=== PATIENT | male | born 1955 | race African-American/Black ===

== ENCOUNTER 2019-04-11 23:06 | Inpatient (IN) ==
[2019-04-11] MEDS ORDERED: ASPIRIN PO ONE (23:18)
--- NOTE | 2019-04-11 23:28 | PROVIDER DOCUMENTATION ---
HPI-Respiratory General - General Chief Complaint: Shortness of Breath Stated Complaint: BREATHING TROUBLE Time Seen by Provider: 04/11/19 23:17 Source: patient Allergies/Adverse Reactions: Patient Allergies Allergy/AdvReac Type Severity Reaction Status Date / Time No Known Allergies Allergy Verified 02/09/15 20:32 Home Medications: Home Medication List Medication Instructions Recorded Confirmed Last Taken Type RAMIpril [Altace] 10 mg PO DAILY 02/09/15 04/11/19 02/09/15 History Aspirin 325 mg PO DAILY 04/11/19 04/11/19 Unknown History Furosemide [Lasix] 20 mg PO DIRECTED 04/11/19 04/11/19 Unknown History Hydrocodone/Acetaminophen 1 ea PO BID PRN PRN 04/11/19 04/11/19 Unknown History [Hydrocodone-Acetamin 10-300 mg] Potassium Chloride 8 meq PO DIRECTED 04/11/19 04/11/19 Unknown History Pravastatin Sodium 1 tab PO DAILY 04/11/19 04/11/19 Unknown History - History of Present Illness-Resp Nature of Presenting Problem: 63 YOM WITH PMH OF HTN, COPD, CHF PRESENTS WITH C/O SOB. REPORTS IT HAS BEEN PRESENT FOR A FEW MONTHS BUT HAS GOTTEN WORSE OVER THE LAST FEW DAYS AND WOKE HIM UP TONIGHT. HE REPORTS HE IS SUPPOSED TO BE ON HOME O2 BUT DOES NOT HAVE ANY. HE DOES CONTINUE TO SMOKE. HE DENIES CP, N/V/D, SWELLING IN EXTREMITIES. + COUGH WITH YELLOW SPUTUM X 2 DAYS Quality of Pain: reports: none Severity in ED: reports: moderate Onset/Duration: reports: other (3-4 MONTHSE HAS GOTTEN WORSE, WOKE HIM UP TONIGHT) Timing: reports: improving Exposure: reports: unknown cause Cough Quality/Degree: reports: moderate, sputum Modifying Factors: worse with: lying down Associated Symptoms: reports: cough, short of breath Similar Symptoms Previously?: Yes Recently seen or treated by another doctor?: Yes (MISSED MOST RECENT APPT) Review of Systems - Adult - REVIEW OF SYSTEMS - ADULT Constitutional: reports: no symptoms reported. denies: see HPI, chills, fever, fatique, night sweats, weight gain, weight loss, other Eyes: reports: no symptoms reported. denies: see HPI, discharge, dry eyes, decreased vision, blurred vision, double vision, eye pain, redness, other Ears, Nose, Mouth & Throat: reports: no symptoms reported. denies: see HPI, ear discharge, ear pain, hearing loss, tinnitus, epistaxis, sinus problem, nose pain, loose teeth, mouth/dental pain, mouth swelling, hoarseness, throat pain, throat swelling, other Cardiovascular: reports: no symptoms reported. denies: see HPI, chest pain, edema, heart murmur, irregular heart rate, orthopnea, palpitations, poor circulation, PND, syncope, other Respiratory: reports: see HPI, shortness of breath. denies: no symptoms reported, chronic cough, cough, dyspnea on exertion, excessive sputum production, hemoptysis, pleurisy, wheezing, other Gastrointestinal: reports: no symptoms reported. denies: see HPI, abdominal pain, hematemesis, constipation, diarrhea, difficulty swallowing, frequent heartburn, nausea, poor appetite, rectal bleeding, vomiting, other Genitourinary: reports: no symptoms reported. denies: see HPI, dysuria, discharge, frequency, flank pain, frequent UTI's, hematuria, hesitency, incontinence, urinary retention, urgency, other Musculoskeletal: reports: no symptoms reported. denies: see HPI, bone pain, cheli k pain, frequent leg cramps, joint pain, joint swelling, muscle aches, muscle weakness, neck pain, other Integumentary: reports: no symptoms reported. denies: see HPI, hives, hair loss, itching, mole changes, nail changes, rash, skin sores/ulcer, skin thickening, other Neurological: reports: no symptoms reported. denies: see HPI, ataxia, dizzines s/vertigo, headache/migraines, loss of balance, numbness, paresthesia, seizure, slurred speech, syncope, tremors, other Psychiatric: reports: no symptoms reported. denies: see HPI, anxiety, anti- depressant use, alcohol/drug dependence, depression, emotional problems, insomn ia, panic attacks, suicidal thoughts, other Endocrine: reports: no symptoms reported. denies: see HPI, change in skin pigment, excessive sweating, goiter, cold intolerance, heat intolerance, increased hunger, increased thirst, polyuria, other Hematologic/Lymphatic: reports: no symptoms reported. denies: see HPI, blood clots, easy bruising, low blood count, lymphedema, prolonged bleeding, swollen lymph nodes, transfusions, other Allergic/Immunologic: reports: no symptoms reported. denies: see HPI, allergic reactions, allergic rhinitis, asthma, eczema, food allergy, frequent infections, hay fever, hives, positive PPD, urticaria, other Past History - Adult - PAST MEDICAL HISTORY-ADULT Review of Records: reports: Nursing Assessment Review, Social history reviewed & non-contributory. Major Childhood Illnesses: reports: denies history Cardiovascular: reports: CHF, HTN Respiratory: reports: COPD (HOME 02) Gastrointestinal: reports: denies history Genitourinary: reports: denies history Neurological: reports: denies history - PRIOR SURGERIES/PROCEDURES Surgical/Procedure History: reports: reviewed, not pertinent, other (large laceration repair to right upper arm) - PRIOR HOSPITALIZATIONS Prior Hospitalizations: reports: for other non-related - IMMUNIZATION STATUS Childhood Immunizations: See Nurse Assessment Flu Vaccine: See Nurse Assessment - FAMILY HISTORY Family History: reviewed, not pertinent Physical Exam-General - PHYSICAL EXAM-ADULT Initial Vital Signs Reviewed: Yes - CONSTITUTIONAL General Appearance: appears well, alert, no apparent distress - EYES Eyes: PERRL/EOMI, pink conjunctivae - HEAD, EARS, NOSE, MOUTH & THROAT HENMT: normocephalic/atraumatic, moist mucous membranes, normal ENT inspection - NECK Neck: non-tender, full range of motion, supple - RESPIRATORY Respiratory: chest non-tender, lungs clear, normal breath sounds, no pleuratic chest pain, no respiratory distress, no accessory muscle use - CARDIOVASCULAR Cardiovascular: normal peripheral pulses, regular rate, rhythm, no edema, no gallop, no JVD - LYMPHATIC Lymphatic: no adenopathy - MUSCULOSKELETAL Back Exam: normal inspection Extremity: normal range of motion, non-tender, normal gait Peripheral Pulses: radial (R): 2+, radial (L): 2+ - SKIN Integumentary: normal color, normal turgor, warm/dry - NEUROLOGIC Neurologic: grossly normal - PSYCHIATRIC Psych/Mental Status: normal mood/affect, oriented x 3 Progress - PLAN OF CARE/RESULTS Progress/Plan/Lab Results: Vital Signs - 8 hr 04/11/19 23:11 Temperature 98.2 F Pulse Rate 90 Respiratory Rate 18 Blood Pressure 183/078 O2 Sat by Pulse Oximetry 90 L Laboratory Results - last 24 hr 04/11/19 04/11/19 04/11/19 23:30 23:30 23:30 WBC 9.00 RBC 6.31 H Hgb 16.8 Hct 52.3 H MCV 82.9 MCH 26.6 L MCHC 32.1 L RDW Std Deviation 15.9 H Plt Count 214 MPV 10.4 Immature Gran % (Auto) 0.2 Neut % (Auto) 63.5 Lymph % (Auto) 24.1 [place] % (Auto) 9.3 Eos % (Auto) 2.6 Baso % (Auto) 0.3 Immature Gran # (Auto) 0.02 Neut # (Auto) 5.71 Lymph # (Auto) 2.17 [place] # (Auto) 0.84 H Eos # (Auto) 0.23 Baso # (Auto) 0.03 Sodium 137 Potassium 4.6 Chloride 100 Carbon Dioxide 23 L Anion Gap 13 BUN 11 Creatinine 0.8 Estimated GFR/1.73 m2 > 60 BUN/Creatinine Ratio 14 Glucose 131 H Calculated Osmolality 275 Calcium 8.7 L Total Bilirubin 0.20 AST 27 ALT 21 Alkaline Phosphatase 101 Creatine Kinase 210 H Creatine Kinase Index 1.1 CK-MB (CK-2) 2.33 Troponin T < 0.010 [id number] Pept Total Protein 7.5 Albumin 4.1 Globulin 3.0 Albumin/Globulin Ratio 1.0 04/11/19 23:30 WBC RBC Hgb Hct MCV MCH MCHC RDW Std Deviation Plt Count MPV Immature Gran % (Auto) Neut % (Auto) Lymph % (Auto) [place] % (Auto) Eos % (Auto) Baso % (Auto) Immature Gran # (Auto) Neut # (Auto) Lymph # (Auto) [place] # (Auto) Eos # (Auto) Baso # (Auto) Sodium Potassium Chloride Carbon Dioxide Anion Gap BUN Creatinine Estimated GFR/1.73 m2 BUN/Creatinine Ratio Glucose Calculated Osmolality Calcium Total Bilirubin AST ALT Alkaline Phosphatase Creatine Kinase Creatine Kinase Index CK-MB (CK-2) Troponin T [id number] Pept 24 Total Protein Albumin Globulin Albumin/Globulin Ratio Orders Category Date Time Status Cardiac Monitoring DIRECTED Care 04/11/19 23:18 Active Saline Loc NOW Care 04/11/19 23:18 Active cxr [CHEST-2 VIEWS] [RAD] Stat Exams 04/11/19 23:17 Taken ABG [RESP] Routine Lab 04/11/19 23:41 Ordered BLOOD CULTURE [BLDCUL] Stat Lab 04/12/19 00:38 Ordered BNP [PRO B-NATRIURETIC PEPTIDE] Stat Lab 04/11/19 23:30 Completed CBC WITH ELECTRONIC DIFF [HEME] Stat Lab 04/11/19 23:30 Completed CK PROFILE [SP CHEM] Stat Lab 04/11/19 23:30 Completed COMPREHENSIVE METABOLIC PANEL [CHEM] Stat Lab 04/11/19 23:30 Completed TROPONIN T Stat Lab 04/11/19 23:30 Completed Aspirin Med 04/11/19 23:18 Discontinued 325 mg PO NOW ONE CefTRIAXONE [Rocephin] 1 gm Med 04/12/19 00:34 Active 0.9% Sodium Chloride Inj [Ns] 50 ml IV NOW Clonidine [Catapres] Med 04/12/19 00:17 Discontinued 0.1 mg PO NOW ONE Methylprednisolone Sod Succ [Solu-Medrol] Med 04/12/19 00:36 Discontinued 125 mg IV NOW ONE Oxygen Device Stat Oth 04/11/19 23:18 Active EKG [EKG] Stat Ther 04/11/19 23:17 Ordered Pt signed out to me by JAY Javed, Dr. Paez has been paged multiple times over the last 3 hours with no response, protocol states to call other hospitalist, spoke with Dr. Bonds who is aware of the patient, will admit to Dr. Paez for PNA and Dr. Bonds to notify Jeannine about the patient Result Diagrams: 04/11/19 23:30 04/11/19 23:30 - EKG 1 Time of EKG reading by physician:: 23:28 EKG Read and Signed by:: Marco Chawla EKG Interpretation (*Must complete 3 of following elements*): Abnormal Rate: 93 Rhythm: SR [place]: right QRS: normal [place] Interval: normal ST Wave: normal Prior EKG Comparison: no prior EKG - XRAY 1 XRAY Study: Chest Impression: Abnormal (FOCAL CONSOLIDATION C/W PNA-DR CHAWLA) - CONSULTS/PCP/HOSPITALIST Notification #1 *Consult/PCP/Hospitalist*: DR BROWN Consult Disposition: Admit - CHANGE OF SHIFT REPORT (ED Provider) 1 Report Given and Care Transferred to:: DR CHAWLA Time of Transfer: 01:00 Items Pending: Physician Consult/Arrival Departure - Departure Date of Disposition Decision: 04/12/19 Time of Disposition Decision: 00:48 DIAGNOSIS: Hypoxia Pneumonia Qualifiers: Pneumonia type: due to unspecified organism Laterality: unspecified laterality Lung location: unspecified part of lung Qualified Code(s): J18.9 - Pneumonia, unspecified organism HTN (hypertension) Qualifiers: Hypertension type: essential hypertension Qualified Code(s): I10 - Essential (primary) hypertension Disposition: ADMITTED INPATIENT 09 Certified Medical Emergency: Emergent Condition: Fair Referrals and Follow-Ups: Michael Werner MD [Primary Care Provider] - - Critical Care Note This patient required my direct & personal management of CC.: No Attestation - Physician/ TAO Attestation Patient care was provided by Advanced Practice Provider:: Yes Advanced Practice Provider:: Lisa Javed Advanced Practice Provider documentation review:: The Mid-level provider documentation, treatment plan and medical decision making was reviewed by the physician who agrees with all treatment and medical decision making by the MLP. The physician spent face to face time with patient:: No Advanced Practice Provider documentation review:: Supervising physician onsite and consulted in the evaluation and care of this patient. The physician did not have a face to face encounter with the patient.
[2019-04-11 23:46] LABS: BASO# 0.03 X1000 (0.0-0.2); BASO% 0.3 % (0.0-0.8); EOS# 0.23 X1000 (0.0-0.7); EOS% 2.6 % (0.0-10.0); HEMATOCRIT 52.3 % (42.0-52.0); HEMOGLOBIN 16.8 g/dL (14.0-18.0); IMM GRAN# 0.02 X1000 (0.0-0.04); IMM GRAN% 0.2 % (0.0-0.5); LYMPH# 2.17 X1000 (1.2-3.4); LYMPH% 24.1 % (20.5-51.1); MCH 26.6 PG (27-31); MCHC 32.1 g/dL (33-37); MCV 82.9 FL (81-99); MONO# 0.84 X1000 (0.11-0.59); MONO% 9.3 % (1.7-9.3); MPV 10.4 FL (7.4-10.4); NEUT# 5.71 X1000 (1.4-6.5); NEUT% 63.5 % (42.2-75.2); PLT 214 X1000 (130-400); RBC 6.31 XMIL (4.7-6.1); RDW 15.9 % (11.5-14.5)
[2019-04-12 00:05] LABS: AGAP 13; ALBUMIN 4.1 g/dL (3.5-5.0); ALKALINE PHOSPHATASE 101 U/L (32-122); BUN 11 mg/dL (8-22); CALCIUM 8.7 mg/dL (8.8-10.2); CHLORIDE 100 mmol/L (98-107); CK PROFILE 210 U/L (24-204); COSMO 275; CREATININE 0.8 mg/dL (0.7-1.2); ESTIMATED GFR > 60; GLUCOSE 131 mg/dL (70-104); GOT 27 U/L (10-34); GPT 21 U/L (10-44); POTASSIUM 4.6 mmol/L (3.5-5.1); SODIUM 137 mmol/L (136-145); TCO2 23 mmol/L (25-35); TOTAL PROTEIN 7.5 g/dL (6.3-8.3)
[2019-04-12 00:06] LABS: BLOOD TYPE ARTERIAL; SAMPLE BLOOD
[2019-04-12] MEDS ORDERED: CATAPRES PO ONE (00:17)
[2019-04-12 00:27] LABS: CK INDEX 1.1 (0.0-2.5); CK-MB 2.33 ng/mL (0.0-5.0)
[2019-04-12] MEDS ORDERED: ROCEPHIN 1 GM in NS 50 ML IV ONE (00:34)
[2019-04-12] MEDS ORDERED: SOLU-MEDROL IV ONE (00:36)
[2019-04-12 02:12] LABS: BE 1.8 mmoll (-3.0-3.0); HCO3-(ACT) 25.9 mmoll (20.0-26.0); METHB 1.3 % (0.0-1.5); PCO2(98.6) 41 mmHg (35-45); PO2(98.6) 72 mmHg (60-100); SAO2 97.3 % (95.0-100.0); pH(98.6) 7.42 (7.35-7.45)
[2019-04-12] MEDS ORDERED: TORADOL IV PRN (04:06)
[2019-04-12] MEDS ORDERED: ZOFRAN IV PRN (04:06)
[2019-04-12] MEDS ORDERED: MORPHINE IV PRN (04:06)
[2019-04-12] MEDS ORDERED: TYLENOL PO PRN (04:06)
--- NOTE | 2019-04-12 04:54 | EKG Report ---
Test Performed on : 04/11/2019 11:28:27 PM Test Reason : SOB Blood Pressure : / mmHG Vent. Rate : 093 BPM Atrial Rate : 093 BPM P-R Int : 192 ms QRS Dur : 086 ms QT Int : 386 ms P-R-T Axes : 059 097 070 degrees QTc Int : 479 ms Normal sinus rhythm. with sinus arrhythmia. Rightward axis Borderline ECG No previous ECGs available Unconfirmed Result
--- NOTE | 2019-04-12 07:23 | Diag Imaging Result Doc PS360 ---
EXAM: CHEST-2 VIEWS HISTORY: SOB TECHNIQUE: Three views COMPARISON: 04/17/2017 FINDINGS: The lungs are well expanded. The heart is not enlarged. There are increased interstitial markings in the mid and lower lungs. No pleural effusions. No consolidation. IMPRESSION: Small infiltrates/pulmonary edema in the mid lower lungs Electronically signed by Emiliano Vences 04/12/2019 7:20 AM
[2019-04-12 08:42] LABS: BASO# 0.01 X1000 (0.0-0.2); BASO% 0.1 % (0.0-0.8); HEMATOCRIT 54.8 % (42.0-52.0); HEMOGLOBIN 17.7 g/dL (14.0-18.0); IMM GRAN# 0.02 X1000 (0.0-0.04); IMM GRAN% 0.3 % (0.0-0.5); LYMPH# 0.92 X1000 (1.2-3.4); LYMPH% 12.6 % (20.5-51.1); MCH 26.7 PG (27-31); MCHC 32.3 g/dL (33-37); MCV 82.7 FL (81-99); MONO# 0.02 X1000 (0.11-0.59); MONO% 0.3 % (1.7-9.3); MPV 10.5 FL (7.4-10.4); NEUT# 6.33 X1000 (1.4-6.5); NEUT% 86.7 % (42.2-75.2); PLT 221 X1000 (130-400); RBC 6.63 XMIL (4.7-6.1); RDW 15.6 % (11.5-14.5)
[2019-04-12 08:57] LABS: INR 1.01; PROTIME 13.8 Seconds (11.0-16.0); PTT 29.2 Seconds (22.3-41.8)
[2019-04-12 09:01] LABS: LYMPHS 11 % (21-51); MONO 3 % (1-9); SEGS 85 % (42-75)
[2019-04-12 09:03] LABS: AGAP 14; ALBUMIN 4.6 g/dL (3.5-5.0); ALKALINE PHOSPHATASE 100 U/L (32-122); BUN 10 mg/dL (8-22); CALCIUM 9.2 mg/dL (8.8-10.2); CHLORIDE 101 mmol/L (98-107); CK PROFILE 168 U/L (24-204); COSMO 281; CREATININE 0.8 mg/dL (0.7-1.2); ESTIMATED GFR > 60; GLUCOSE 177 mg/dL (70-104); GOT 16 U/L (10-34); GPT 21 U/L (10-44); POTASSIUM 4.4 mmol/L (3.5-5.1); SODIUM 139 mmol/L (136-145); TCO2 25 mmol/L (25-35); TOTAL PROTEIN 7.4 g/dL (6.3-8.3)
[2019-04-12 09:33] LABS: URINE SOURCE CLEAN CATCH
[2019-04-12] MEDS ORDERED: LABETALOL IV PRN (09:34)
[2019-04-12 09:35] LABS: BILIRUBIN URINE NEGATIVE (NEGATIVE); BLOOD URINE SMALL (NEGATIVE); COLOR YELLOW; GLUCOSE URINE NEGATIVE (NEGATIVE); KETONE URINE NEGATIVE (NEGATIVE); LEUKOCYTES URINE NEGATIVE (NEGATIVE); NITRITE URINE NEGATIVE (NEGATIVE); PH URINE 6.5; PROTEIN URINE TRACE mg/dL (NEGATIVE); SP GRAVITY URINE 1.016; TURBIDITY URINE CLEAR (CLEAR); UROBILINOGEN URINE NORMAL (NORMAL)
[2019-04-12 09:36] LABS: UR EPITHELIAL CELLS <10 /HPF (<10); URINE BACTERIA NEGATIVE /HPF; URINE RBC <10 /HPF (<10); URINE WBC <10 /HPF (<10)
[2019-04-12] MEDS ORDERED: LASIX PO SCH (09:45)
[2019-04-12] MEDS ORDERED: POTASSIUM CHLORIDE 8 MEQ PO SCH (09:45)
[2019-04-12] MEDS: ALTACE PO SCH (09:46)
[2019-04-12] MEDS: ZITHROMAX 500 MG/NS 500 MG/250 ML IVPB IV SCH (11:15)
[2019-04-12] MEDS: DUONEB (A & A) INH SCH ×4 (11:25→22:33)
[2019-04-12] MEDS ORDERED: PNEUMOVAX 23 IM ONE (12:45)
[2019-04-12] MEDS: LASIX IV SCH ×2 (12:52→22:10)
[2019-04-12] MEDS: NORCO-10 PO PRN ×2 (13:12→18:47)
--- NOTE | 2019-04-12 18:43 | HISTORY AND PHYSICAL ---
PRIMARY CARE PHYSICIAN: Dr. Werner. CHIEF COMPLAINT: Shortness of breath has progressively worsened over the last few days with a productive cough with yellow sputum. HISTORY OF PRESENT ILLNESS: This is a 63-year-old male who presents to [facility] ER with complaints of shortness of breath and a productive cough of yellow sputum that has been worse over the last couple of days stated actually woke him up from sleep so he came to the emergency room. States that he does have oxygen at home and also a CPAP. He does smoke a half a pack of cigarettes a day and has done so for the past 20+ years. Workup showed a O2 saturation on room air of 90% did drop as low as 88% and was changed from a nasal cannula to a nonrebreather. Chest x-ray showed small infiltrates and pulmonary edema in the mid lower lungs so he is being admitted for further evaluation and treatment. PAST MEDICAL HISTORY: Of hypertension, COPD with home O2 and CHF. PAST SURGICAL HISTORY: Of a cyst removed. FAMILY HISTORY: Reviewed and noncontributory. SOCIAL HISTORY: He currently lives with family smokes a half a pack of cigarettes a day and has done so for 20+ years, denies any alcohol or illicit drug use. ALLERGIES: Eggs. HOME MEDICATIONS: Aspirin 325 mg p.o. daily, Lasix 20 mg p.o. as directed, [place] 10 one p.o. b.i.d. p.r.n., potassium 8 mEq p.o. as directed, pravastatin 40 mg p.o. daily and ramipril 10 mg p.o. daily. LABORATORY DATA: Showed a white blood cell count of 9, hemoglobin 16.8, hematocrit 52.3, platelets 214,000, PT and INR of 13.8 and 1.01. ABG with a pH of 7.42, pCO2 of 41, PO2 72, bicarb 25.9, oxyhemoglobin 87, carboxyhemoglobin 9 and this was on 3.5 L per nasal cannula. Sodium 137, potassium 4.6, chloride 100, CO2 23, BUN of 11, creatinine 1.8, glucose 131. Cardiac enzymes were negative 2 sets, plasma lactate of 1.2. Urinalysis was negative. Chest x-ray showed small infiltrates in the mid and lower lungs and pulmonary edema. EKG showed normal sinus rhythm with sinus arrhythmia at 93. REVIEW OF SYSTEMS: He denied any fever, chills, blurred vision, dizziness, chest pain, coughing. He was short of breath and had a yellow productive cough. Denied any abdominal pain, constipation, diarrhea, burning or hurting with urination. PHYSICAL EXAMINATION: On arrival he had a temperature of 98.2 degrees, pulse 90, respirations 18, blood pressure 183/78, was initially saturating 90% on room air placed on O2 via nasal cannula at 4 L but dropped on that down to 88% so was placed on a nonrebreather is now currently on a Venturi mask at 94%. HEENT: Normocephalic, atraumatic. Normal ENT inspection. Oropharynx and nares are clear. Pupils are equal, round, and reactive to light, accommodation. Extraocular movements are intact. NECK: Normal inspection, normal range of motion. LUNGS: With some decreased breath sounds in the bases, bilaterally equal lung expansion. Chest wall movement noted. O2 via Venturi mask in place at this time. HEART: Regular rate and rhythm. No murmurs, rubs, or gallops. ABDOMEN: Soft, nontender, nondistended. Bowel sounds are present x4 quadrants. MUSCULOSKELETAL: He has 5/5 strength x4 extremities. NEUROLOGICAL: The cranial nerves 2-12 appear grossly intact. ASSESSMENT: 1. Bilateral pneumonia/pulmonary edema. 2. Acute respiratory failure. 3. Hypertension. 4. Congestive heart failure history of with a possible mild exacerbation. 5. Tobacco abuse. OUR PLAN: He was admitted to the medical unit placed on healthy heart diet. We are going to check an echocardiogram, place him on Lasix 40 mg IV q.12, Rocephin 1 gram IV q.24, azithromycin 500 IV q.24, DuoNeb q.4 hours. Recheck a CBC, BMP in the a.m., continue O2 per protocol and further orders after seen by attending. Dictated by MIGUEL Mackay for Gopi Little MD cc: MIGUEL Mackay MD Dr. Thomas
[2019-04-12] MEDS: ASPIRIN PO SCH (18:47)
--- NOTE | 2019-04-12 20:35 | Diag Imaging Result Doc PS360 ---
EXAM: CT ANGIOGRM PULMONARY ARTERIES HISTORY: chest pain TECHNIQUE: CT chest with intravenous contrast. Pulmonary arterial protocol with MIP images COMPARISON: 02/20/2014 FINDINGS: Suboptimal opacification of the pulmonary arteries. Contrast is primarily in the aorta. No large central pulmonary emboli. The heart is enlarged and there is a moderate pericardial effusion measuring 2.1 cm laterally. No pleural fluid. There is central vascular distention. Atelectasis is present in the lower lungs. No consolidation. Stable 11 mm nodule in the posterior right middle lobe and smaller nodule in the right upper lobe. Stable hilar adenopathy. IMPRESSION: 1.No large central pulmonary emboli 2.Cardiomegaly with a pericardial effusion 3.Stable right lung nodules 4.Pulmonary edema This exam was performed using automated exposure control, adjustment of mA or kV according to patient size, and/or use of iterative reconstruction technique. Electronically signed by Emiliano Vences 04/12/2019 8:33 PM
[2019-04-13] MEDS: ROCEPHIN 1 GM in NS 50 ML IV SCH (01:00)
--- NOTE | 2019-04-13 02:28 | HISTORY AND PHYSICAL ---
ADDENDUM: The patient is a 63-year-old male with history of shortness of breath, possibly some CHF. He came in fairly hypoxic. He was on a nonrebreather. His chest x-ray shows maybe some pulmonary edema, really not that convincing. He will be admitted for treatment. I really feel like this is mostly a CHF exacerbation, but I would feel like we should appreciate more pulmonary edema, so I am going to go ahead and CT his chest and pulmonary arteries to rule out PE. He is an obese male. He certainly could have it potentially, he is certainly at risk for PE, but more than likely this is heart failure related. We will continue diuretics, breathing treatments. I am going to put him on high-flow O2. He also has malignant hypertension, so we are going to work on trying to get that under control and try to wean O2 as much as possible. cc: Gopi Little MD
[2019-04-13] MEDS: DUONEB (A & A) INH SCH ×6 (05:34→22:51)
[2019-04-13 06:38] LABS: AGAP 14; BUN 16 mg/dL (8-22); CALCIUM 9.1 mg/dL (8.8-10.2); CHLORIDE 99 mmol/L (98-107); COSMO 279; CREATININE 0.8 mg/dL (0.7-1.2); ESTIMATED GFR > 60; GLUCOSE 128 mg/dL (70-104); POTASSIUM 4.3 mmol/L (3.5-5.1); SODIUM 138 mmol/L (136-145); TCO2 25 mmol/L (25-35)
[2019-04-13 06:39] LABS: WBC 16.07 X1000 (4.8-10.8)
[2019-04-13 06:40] LABS: BASO# 0.01 X1000 (0.0-0.2); BASO% 0.1 % (0.0-0.8); EOS# 0.02 X1000 (0.0-0.7); EOS% 0.1 % (0.0-10.0); HEMOGLOBIN 17.5 g/dL (14.0-18.0); IMM GRAN# 0.04 X1000 (0.0-0.04); IMM GRAN% 0.2 % (0.0-0.5); LYMPH# 2.23 X1000 (1.2-3.4); LYMPH% 13.9 % (20.5-51.1); MCHC 31.8 g/dL (33-37); MCV 81.7 FL (81-99); MONO# 1.15 X1000 (0.11-0.59); MONO% 7.2 % (1.7-9.3); MPV 10.8 FL (7.4-10.4); NEUT# 12.62 X1000 (1.4-6.5); NEUT% 78.5 % (42.2-75.2); PLT 268 X1000 (130-400); RBC 6.73 XMIL (4.7-6.1); RDW 15.7 % (11.5-14.5)
--- NOTE | 2019-04-13 09:58 | ECHO REPORT ---
ORDER DATE: 04/12/2019 MEASUREMENTS: Septal thickness 0.8, left ventricular internal diameter diastole 4.5. Aortic root 2.4, left atrium 4.2. SUMMARY: 1. Technically difficult study. 2. Aortic valve is without apparent structure abnormality and opens adequately on 2-dimensional images. Aortic valve appears to be probably trileaflet. The peak gradient across aortic valve is 13 mmHg. Mitral and tricuspid valves are without gross structural abnormality. Pulmonic valve is not well visualized. Aortic root is normal size. 3. Normal left ventricle dimension suggested. Estimated left ejection fraction appears to be at least 60%. No obvious wall motion abnormalities are evident. Doppler suggests grade 1 left ventricular diastolic dysfunction. Left atrium is borderline enlarged. Right atrium and right ventricle are grossly normal size with grossly preserved right ventricular systolic function. 4. No pericardial effusion. 5. Appearance of inferior vena cava suggests elevated central venous pressure. cc: MD Gopi Jimenes MD
[2019-04-13] MEDS: ASPIRIN PO SCH (10:37)
[2019-04-13] MEDS: NORCO-10 PO PRN ×2 (10:38→21:42)
[2019-04-13] MEDS: LASIX IV SCH ×2 (10:38→21:30)
[2019-04-13] MEDS: ALTACE PO SCH (10:38)
[2019-04-13] MEDS: ZITHROMAX 500 MG/NS 500 MG/250 ML IVPB IV SCH (10:40)
[2019-04-13 11:18] LABS: ALLEN TEST YES; MODALITY CANNULA
--- NOTE | 2019-04-13 14:33 | PROGRESS NOTE ---
DATE: 04/13/2019 SUBJECTIVE: Patient has no major complaints. OBJECTIVE: Blood pressure is 157/85, heart rate of 85, respiratory rate 18, temperature 98.3 degrees, 95% on 3.5 L.Cardiovascular: Regular rate and rhythm. Pulmonary: Bilateral breath sounds clear to auscultation. GI: Soft, nontender, nondistended. Bowel sounds are positive. LABORATORY DATA: White count up to 16, hemoglobin and hematocrit 17, 55, platelets 268,000. Basic was normal. PROBLEM LIST: 1. Acute congestive heart failure exacerbation, diastolic apparently. His echocardiogram looks normal or as far as his ejection fraction is intact but he has grade [address] Osman's read and he is certainly acting like he has heart failure. Since he has uncontrolled hypertension that is probably what tipped off the scales. I have added Coreg. He is on Lasix. He is on ramipril. We will continue to follow. 2. Chronic obstructive pulmonary disease, possible early bronchitis pneumonia. CTA does not have evidence of pneumonia. I will keep him on antibiotics because he has profound white count today, although that may be from the steroids he has had previously. I think this is most likely all heart failure related. 3. Malignant hypertension. We will continue to work on control so we have added Coreg today and will follow. I think it would benefit him to have a Cardiology opinion so will try to pursue that while he is here. He has seen Dr. Mendosa in the past but I do not think he has been followed closely. cc: Gopi Little MD
[2019-04-13] MEDS ORDERED: PRAVACHOL PO SCH (21:00)
[2019-04-13] MEDS: COREG PO SCH (21:29)
[2019-04-14] MEDS: ROCEPHIN 1 GM in NS 50 ML IV SCH (00:48)
[2019-04-14] MEDS: DUONEB (A & A) INH SCH ×3 (02:29→11:19)
[2019-04-14 05:21] VITALS: BP 127/67
[2019-04-14 06:04] LABS: AGAP 13; BUN 19 mg/dL (8-22); CALCIUM 9.1 mg/dL (8.8-10.2); CHLORIDE 97 mmol/L (98-107); COSMO 279; CREATININE 0.8 mg/dL (0.7-1.2); ESTIMATED GFR > 60; GLUCOSE 112 mg/dL (70-104); MAGNESIUM 2.1 mg/dL (1.5-2.7); POTASSIUM 4.1 mmol/L (3.5-5.1); SODIUM 138 mmol/L (136-145); TCO2 28 mmol/L (25-35)
[2019-04-14 07:29] LABS: BASO# 0.03 X1000 (0.0-0.2); BASO% 0.3 % (0.0-0.8); EOS# 0.14 X1000 (0.0-0.7); EOS% 1.5 % (0.0-10.0); HEMATOCRIT 58.5 % (42.0-52.0); HEMOGLOBIN 18.3 g/dL (14.0-18.0); IMM GRAN# 0.01 X1000 (0.0-0.04); IMM GRAN% 0.1 % (0.0-0.5); LYMPH# 2.82 X1000 (1.2-3.4); LYMPH% 30.3 % (20.5-51.1); MCH 25.8 PG (27-31); MCHC 31.3 g/dL (33-37); MCV 82.4 FL (81-99); MONO# 0.92 X1000 (0.11-0.59); MONO% 9.9 % (1.7-9.3); MPV 10.5 FL (7.4-10.4); NEUT% 57.9 % (42.2-75.2); PLT 240 X1000 (130-400); RDW 16.3 % (11.5-14.5); WBC 9.32 X1000 (4.8-10.8)
[2019-04-14] MEDS ORDERED: ZITHROMAX PO SCH (09:00)
[2019-04-14] MEDS: LASIX IV SCH (10:17)
[2019-04-14] MEDS: ASPIRIN PO SCH (10:17)
[2019-04-14] MEDS: ALTACE PO SCH (10:18)
[2019-04-14] MEDS: COREG PO SCH (10:18)
--- NOTE | 2019-04-14 11:33 | Diag Imaging Result Doc PS360 ---
EXAM: CHEST-PORTABLE HISTORY: chf TECHNIQUE: Single view of the chest was performed portably. COMPARISON: None. FINDINGS: Limited portable exam. There is cardiomegaly. The pulmonary vasculature is not congested. Interstitial prominence may be slightly improved. No focal consolidation. No effusions are appreciated. IMPRESSION: Limited portable exam. Suspect mild improvement in interstitial infiltrates. Electronically signed by Shira Birmingham 04/14/2019 11:31 AM
--- NOTE | 2019-04-14 17:09 | CONSULTATION ---
DATE OF CONSULTATION: 04/14/2019 IMPRESSIONS: 1. Acute dyspnea. Suspect due to acute exacerbation of chronic pulmonary disease, chronic obstructive pulmonary disease. 2. Chronic chronic obstructive pulmonary disease requiring chronic home oxygen. Patient has not been using his oxygen regularly and has been out of bronchodilators of late. 3. Chronic ongoing cigarette use. 4. Hypertensive cardiovascular disease. Left ventricular ejection fraction normal. 5. Obesity. 6. Obstructive sleep apnea very likely. RECOMMENDATIONS: 1. Further diuresis does not appear to be warranted. 2. Aggressively treat COPD exacerbation as you are doing. Patient appears to be improving rapidly and should probably be able to go home soon. 3. Future evaluation with sleep study. 4. Smoking cessation strongly advised. HISTORY: This 63-year-old -[place] male with past history of COPD, obesity, obstructive sleep apnea, hypertensive cardiovascular disease, and chronic ongoing cigarette use was admitted recently with increase in dyspnea symptoms. He relates that he would be lying down for bed and start feeling shortness of breath. He has had some cough productive of modest amounts of white to yellow sputum. He has not been using his oxygen and he has been out of bronchodilators. There has been no chest pain. Chest x-ray demonstrates some chronic interstitial mild infiltrate in the right midlung region. The patient was admitted and treated for COPD exacerbation and possible congestive heart failure. He has been diuresed. He has improved considerably. Echocardiography indicated normal left ventricular ejection fraction. PAST MEDICAL HISTORY: 1. COPD requiring chronic home oxygen. 2. Hypertensive cardiovascular disease. 3. Obesity. 4. Probable obstructive sleep apnea. PAST SURGICAL HISTORY: Includes previous removal of a cyst but otherwise negative. ALLERGIES: He has no known drug allergies. MEDICATIONS: Medications prior to admission as listed. It is noteworthy that he has been out of bronchodilator inhalers for some time now. SOCIAL HISTORY: He continues to smoke a half pack of cigarettes per day. He does not use alcohol. FAMILY HISTORY: Negative for premature coronary disease. REVIEW OF SYSTEMS: Pulmonary: Noteworthy for dyspnea, as well as productive cough. Gastrointestinal: Negative. Constitutional: Negative. Remainder of review of systems negative/noncontributory with 14 total systems reviewed. PHYSICAL EXAMINATION: General: Reveals an obese, older middle-aged, -[place] male in no distress. Vital signs: Blood pressure 127/67, heart rate 92 and regular, oxygen saturation 95% on nasal cannula oxygen. HEENT: Extraocular movements appear intact. Mucous membranes moist. Neck: Supple without jugular venous distention. There are no carotid bruits. Chest: Auscultation of the chest reveals diminished breath sounds diffusely but no rales. Cardiac Exam: Reveals a regular rate and rhythm without appreciable murmur or gallop. Abdomen: Soft. Bowel sounds are normal. Extremities: Without edema. Neurologic: Reveals him to be alert and fully oriented. Speech is fluent. He moves all 4 extremities equally well. Skin: Warm and dry. Psychiatric: Reveals his mood to be appropriate. LABORATORY DATA: Includes a white blood cell count 9.37 hematocrit 58.5, hemoglobin 18.3, platelet count 240,000. Sodium 138, potassium 4.1, chloride 97, carbon dioxide 28, BUN 19, creatinine 0.8, glucose 112. Initial troponin T less than 0.01. Follow-up troponin T less than 0.01. Pro-B natriuretic peptide level on admission 24. EKG on admission demonstrates sinus rhythm and rightward axis. Echocardiography demonstrates normal left ventricular ejection fraction of 60% without wall motion abnormality evident. Doppler suggests grade 1 left ventricular diastolic dysfunction and left atrium is borderline enlarged. cc: Aditya Osman MD
--- NOTE | 2019-04-14 19:06 | DISCHARGE SUMMARY ---
ADMISSION DATE: 04/12/2019 DISCHARGE DATE: 04/14/2019 DIAGNOSES: 1. Bilateral pneumonia, pulmonary edema. 2. Acute respiratory failure resolved. 3. Hypertension. 4. Acute congestive heart failure exacerbation diastolic, resolved. 5. Malignant hypertension. 6. Tobacco abuse. CONSULTANTS: Dr. Aditya Osman, Cardiology. DIAGNOSTICS: 1. Chest x-ray revealed small infiltrates, pulmonary edema in the mid lower lungs. 2. Echocardiogram revealed ejection fraction of 60% with no obvious wall motion abnormalities Doppler suggests grade 1 left ventricular diastolic dysfunction. 3. Pulmonary arteriogram, no large central pulmonary emboli, cardiomegaly with a pericardial effusion. 4. Stable right nodules as compared to February 2014. 5. Pulmonary edema . 6. 04/14/2019 chest x-ray, mild improvement in interstitial infiltrates. HOSPITAL COURSE: Mr. Edwards presented to the emergency room complaining shortness of breath that had progressed over the prior 3 to 4 days with a productive cough with yellow sputum. He was found to have bilateral pneumonia for which he was initially treated with Rocephin and azithromycin and he will be discharged on Omnicef. Blood pressures were initially in the 160s to 180s over 80s to 90s, Coreg was implemented, he diuresed and blood pressures down 120s to 140s over 60 to 70s. Echocardiogram revealed a grade 1 diastolic dysfunction. We were unable to get an accurate I and O as the patient did not measure his urine consistently. Today he has no complaints. He states that his cough has resolved and he is ready for discharge. DISCHARGE PHYSICAL EXAM: Vital Signs: Blood pressure is 127/67, heart rate of 86, respirations are 20, temperature is 98.2 degrees oral with O2 saturations 95 to 97 percent on 3 L nasal cannula. Cardiovascular: Regular rate and rhythm. S1, S2 appreciated. He does have bilateral lower extremity edema but calves nontender bilateral, peripheral pulses palpable x4 extremities . Pulmonary: Breath sounds clear no increased work of breathing noted. Chest rise falls symmetric respiration. Gastrointestinal: Soft, nontender, nondistended with bowel sounds in all 4 quadrants. Neurologic: He is alert, oriented x3. DISCHARGE MEDICATIONS: 1. Altace 10 mg p.o. daily. 2. Pravastatin 40 mg p.o. daily. 3. Potassium chloride 8 mEq p.o. as directed. 4. [place]mer 10/300 one b.i.d. p.r.n. 5. Lasix 40 mg p.o. daily. 6. Omnicef 300 mg p.o. b.i.d. for 7 days. 7. Carvedilol 6.25 p.o. b.i.d. 8. Aspirin 325 p.o. daily. FOLLOWUP: 1. Dr. Michael Werner he needs to call in the morning schedule appointment the next 1 to 2 weeks. 2. His cardiology as directed. 3. He has been encouraged to have a sleep study performed and follow through. 4. He has been instructed to call to be seen sooner, return to the emergency room for any syncope, dizziness, chest pain, palpitations, any increasing shortness of breath, temperature greater than 101, any nausea, vomiting, diarrhea, constipation, black or bloody vomitus or stools, hematuria, dysuria, frequency, urgency. He is been discharged home in stable condition with family members. TIME SPENT: Greater than 30 minutes. The patient was evaluated by Dr. Macias this morning. Dr. Osman felt that this was not heart failure given his normal proBNP. Dictated by MIGUEL Rodriguez for Gopi Little MD cc: MIGUEL Rodriguez MD
--- NOTE | 2019-04-15 13:09 | DISCHARGE SUMMARY ---
PLEASE DELETE MTDD
--- NOTE | 2019-04-15 13:38 | DISCHARGE SUMMARY ---
ADMISSION DATE: 04/12/2019 DISCHARGE DATE: 04/14/2019 ADDENDUM: The patient was seen day of discharge. His lungs are clear. He is breathing comfortably. He was packed up and ready to go. Dr. Osman has evaluated him and did not feel like this was clearly congestive heart failure. He does have an echo that shows diastolic dysfunction, which was read by Dr. Osman and he had pulmonary edema and cardiomegaly on presentation, but I guess since his proBNP was not elevated, this was felt to be other causes of pulmonary edema, which he certainly could have obesity hypoventilation syndrome, malignant hypertension causing pulmonary edema, cor pulmonale possibly but in any case we will discharge him on a bit of Lasix and we have added Coreg to his regimen. He will complete antibiotics. This is a [id number] note with Madalyn Unger. cc: Gopi Little MD
== END 2019-04-14 13:37 | disposition home or self-care (01) | DRG 193 ==
LOC: P.ED 23:06 → P.EDIPHOLD 04-12 06:31
PROVIDERS: ATTEND Internal Medicine